=== PATIENT | female | born 1960 | race Caucasian/White ===

== ENCOUNTER 2017-04-18 09:21 | Emergency (ER) | payer BC ==
--- NOTE | 2017-04-18 09:38 | EDM.PDOC ---
ED HPI GENERAL MEDICAL PROBLEM - General Chief Complaint: Abdominal Pain Stated Complaint: Upper Abdominal Pain Time Seen by Provider: 04/18/17 09:25 Source of Information: Reports: Patient, Family, RN, RN Notes Reviewed History Limitations: Reports: No Limitations - History of Present Illness INITIAL COMMENTS - FREE TEXT/NARRATIVE: Patient presents to the ED at [facility] with severe epigastric pain, N/V that started last evening around 11 pm. Patient states her symptoms began after she had eaten food. She states the vomitus is bile in color. She believe she vomited at least 4-5 times. No diarrhea. No chest pain or SOB. No focal neurological deficits. Onset Date: 04/17/17 Duration: Getting Worse, Waxing/Waning Associated Symptoms: Reports: Nausea/Vomiting Lower Abdomen Pain Score (Numeric/FACES): 4 - Related Data Allergies Allergy/AdvReac Type Severity Reaction Status Date / Time pet dander Allergy Sneezing Uncoded 04/18/17 09:34 seasonal Allergy Itching Uncoded 04/18/17 09:34 Home Meds: Home Meds Ascorbate Calcium [Vitamin C] 1 tab PO BID 11/06/14 [History] Calcium Carbonate/Vitamin D3 [Calcium 600 + Vit D Tablet] 2 tab PO DAILY [History] Celecoxib [CeleBREX] 1 cap PO DAILY 11/06/14 [History] Cetirizine HCl [Zyrtec] 1 cap PO DAILY 11/06/14 [History] Joceline Townsend/Linoleic/Gamoleni [Evening Townsend 1,000 mg Sftg] 1 cap PO BID [History] Fluticasone Propionate [Flonase] 2 spray NASBOTH DAILY 11/06/14 [History] Hydrocodone/Acetaminophen [Hydrocodon-Acetaminoph 7.5-325] 1 - 2 tab PO Q4H PRN 11/06/14 [History] Multivitamin [Multi Vitamin Daily] 1 tab PO BID 11/06/14 [History] Social & Family History - Tobacco Use Smoking Status *Q: Never Smoker - Alcohol Use Days Per Week of Alcohol Use: 0 - Recreational Drug Use Recreational Drug Use: No Drug Use in Last 12 Months: No ED ROS GENERAL - Review of Systems Review Of Systems: See Below Constitutional: Denies: Fever, Chills, Weakness Respiratory: Denies: Shortness of Breath, Cough Cardiovascular: Denies: Chest Pain, Palpitations GI/Abdominal: Reports: Abdominal Pain, Nausea, Vomiting. Denies: Black Stool, Bloody Stool, Diarrhea Skin: Reports: No Symptoms Neurological: Reports: No Symptoms ED EXAM, GI/ABD - Physical Exam Exam: See Below Exam Limited By: No Limitations General Appearance: Alert, No Apparent Distress Respiratory/Chest: No Respiratory Distress, Lungs Clear, Normal Breath Sounds Cardiovascular: Regular Rate, Rhythm GI/Abdominal: Hyperactive Bowel Sounds, Tenderness (epigastric), Rigidity. No: Guarding, Rebound Neurological: Alert, Oriented Skin Exam: Warm, Dry, Intact, Normal Color, No Rash Course - Vital Signs Last Recorded V/S: Last Vital Signs Temp 37.4 C 04/18/17 09:21 Pulse 83 04/18/17 09:21 Resp 16 04/18/17 09:21 BP 118/61 04/18/17 09:21 Pulse Ox - Orders/Labs/Meds Orders: Active Orders 24 hr Category Date Time Status Abdomen Pelvis w Cont [CT] Stat Exams 04/18/17 09:45 Taken Sodium Chloride 0.9% [Saline Flush] Med 04/18/17 09:42 Active 10 ml FLUSH ASDIRECTED PRN Peripheral IV Insertion Adult [OM.PC] Routine Oth 04/18/17 09:42 Ordered Medication Orders Sodium Chloride (Saline Flush) 10 ml FLUSH ASDIRECTED PRN PRN Reason: Keep Vein Open Labs: Laboratory Tests 04/18/17 04/18/17 04/18/17 Range/Units 09:55 09:55 09:55 WBC 12.0 H (4.0-10.0) x10^3/uL RBC 4.35 (4.00-5.50) x10^6/uL Hgb 12.3 (12.0-16.0) g/dL Hct 36.8 (33.0-47.0) % MCV 84.6 (78.0-93.0) fL MCH 28.3 (26.0-32.0) pg MCHC 33.4 (32.0-36.0) g/dL RDW Coeff of Sergio 14.8 (10.0-15.0) % Plt Count 284 (130-400) x10^3/uL Neut % (Auto) 89.7 H (50.0-80.0) % Lymph % (Auto) 4.4 L (25.0-50.0) % [place] % (Auto) 5.4 (2.0-11.0) % Eos % (Auto) 0.4 (0.0-4.0) % Baso % (Auto) 0.1 L (0.2-1.2) % Sodium 142 (136-145) mmol/L Potassium 3.7 (3.5-5.1) mmol/L Chloride 103 (98-107) mmol/L Carbon Dioxide 27 (21-32) mmol/L BUN 15 (7-18) mg/dL Creatinine 0.9 (0.55-1.02) mg/dL Est Cr Clr Drug Dosing 66.52 mL/min Estimated GFR (MDRD) > 60 Glucose 126 H (74-106) mg/dL Lactic Acid 1.1 (0.4-2.0) mmol/L Calcium 8.6 (8.5-10.1) mg/dL C-Reactive Protein 2.6 H (<=0.9) mg/dL Amylase 49 (25-115) U/L Lipase 134 (73-393) U/L Urine Color (YELLOW) Urine Appearance (CLEAR) Urine pH (5.0-8.0) Ur Specific [place] Urine Protein (NEGATIVE) mg/dL Urine Glucose (UA) (NEGATIVE) mg/dL Urine Ketones (NEGATIVE) mg/dL Urine Occult Blood (NEGATIVE) Urine Nitrite (NEGATIVE) Urine Bilirubin (NEGATIVE) Urine Urobilinogen (0.2) EU/dL Ur Leukocyte Esterase (NEGATIVE) Urine RBC (NOT SEEN) /HPF Urine WBC (NOT SEEN) /HPF Ur Squamous Epith Cells (NEGATIVE) /HPF Urine Bacteria (NEGATIVE) /HPF Urine Mucus (NEGATIVE) /LPF 04/18/17 Range/Units 11:50 WBC (4.0-10.0) x10^3/uL RBC (4.00-5.50) x10^6/uL Hgb (12.0-16.0) g/dL Hct (33.0-47.0) % MCV (78.0-93.0) fL MCH (26.0-32.0) pg MCHC (32.0-36.0) g/dL RDW Coeff of Sergio (10.0-15.0) % Plt Count (130-400) x10^3/uL Neut % (Auto) (50.0-80.0) % Lymph % (Auto) (25.0-50.0) % [place] % (Auto) (2.0-11.0) % Eos % (Auto) (0.0-4.0) % Baso % (Auto) (0.2-1.2) % Sodium (136-145) mmol/L Potassium (3.5-5.1) mmol/L Chloride (98-107) mmol/L Carbon Dioxide (21-32) mmol/L BUN (7-18) mg/dL Creatinine (0.55-1.02) mg/dL Est Cr Clr Drug Dosing mL/min Estimated GFR (MDRD) Glucose (74-106) mg/dL Lactic Acid (0.4-2.0) mmol/L Calcium (8.5-10.1) mg/dL C-Reactive Protein (<=0.9) mg/dL Amylase (25-115) U/L Lipase (73-393) U/L Urine Color Yellow (YELLOW) Urine Appearance Cloudy H (CLEAR) Urine pH 8.5 H (5.0-8.0) Ur Specific [place] 1.015 Urine Protein Negative (NEGATIVE) mg/dL Urine Glucose (UA) Negative (NEGATIVE) mg/dL Urine Ketones Trace H (NEGATIVE) mg/dL Urine Occult Blood Negative (NEGATIVE) Urine Nitrite Negative (NEGATIVE) Urine Bilirubin Negative (NEGATIVE) Urine Urobilinogen 0.2 (0.2) EU/dL Ur Leukocyte Esterase Negative (NEGATIVE) Urine RBC 0-5 (NOT SEEN) /HPF Urine WBC 0-5 (NOT SEEN) /HPF Ur Squamous Epith Cells Rare (NEGATIVE) /HPF Urine Bacteria Many H (NEGATIVE) /HPF Urine Mucus Not seen (NEGATIVE) /LPF Meds: Medications Generic Name Dose Route Start Last Admin Trade Name Freq PRN Reason Stop Dose Admin Sodium Chloride 10 ml 04/18/17 09:42 Saline Flush FLUSH ASDIRECTED PRN Keep Vein Open Discontinued Medications Generic Name Dose Route Start Last Admin Trade Name Freq PRN Reason Stop Dose Admin Al Hydroxide/Mg Hydroxide 30 ml 04/18/17 10:06 04/18/17 10:13 Gi Cocktail PO 04/18/17 10:07 30 ml ONETIME ONE Administration Sodium Chloride 1,000 mls @ 999 mls/hr 04/18/17 09:43 04/18/17 10:04 Normal Saline IV 04/18/17 10:43 999 mls/hr ONETIME ONE Administration Sodium Chloride 100 mls @ 3 mls/sec 04/18/17 11:10 04/18/17 11:37 Normal Saline IV 04/18/17 11:11 3 mls/sec ONETIME ONE Administration Iopamidol 100 ml 04/18/17 11:10 04/18/17 11:37 Isovue-300 (61%) IVPUSH 04/18/17 11:11 100 ml ONETIME ONE Administration Ketorolac Tromethamine 30 mg 04/18/17 09:43 04/18/17 10:05 Toradol IVPUSH 04/18/17 09:44 30 mg ONETIME ONE Administration Ondansetron HCl 4 mg 04/18/17 09:43 04/18/17 10:07 Zofran IVPUSH 04/18/17 09:44 4 mg ONETIME ONE Administration Pantoprazole Sodium 40 mg 04/18/17 09:43 04/18/17 10:10 Protonix Iv IVPUSH 04/18/17 09:44 40 mg ONETIME ONE Administration - Radiology Interpretation Free Text/Narrative:: CT Abd/Pelvis: Acute Appendicitis - see scanned document in EMR CT Results Date: 04/18/17 CT Results Time: 12:12 Departure - Departure Time of Disposition: 12:29 Disposition: DC/Tfer to Acute Hospital 02 Condition: good Clinical Impression: Appendicitis Qualifiers: Appendicitis type: acute appendicitis Acute appendicitis type: with localized peritonitis Qualified Code(s): K35.3 - Acute appendicitis with localized peritonitis - Discharge Information Referrals: Cara Gonsalez MD [Physician] - Forms: Interfacility Transfer [facility] ED Communication - ED Communication Date/Time Date: 04/18/17 Time Called: 12:26 - Discussed Case With (1) Discussed Case With (1): Admitting Provider (Dr. Nagy, Surgery) - Conversation Summary Admitting Provider Agreed to Patient's Admission: Yes Patient Aware of Amendments fo Care Plan: Yes Summary Comment: Patient will be transferred to [facility]. Dr. Nagy is the accepting provider. Report given. - Problem List Review Problem List Initiated/Reviewed/Updated: Yes - My Orders Last 24 Hours: My Active Orders 04/18/17 09:42 Sodium Chloride 0.9% [Saline Flush] 10 ml FLUSH ASDIRECTED PRN Peripheral IV Insertion Adult [OM.PC] Routine 04/18/17 09:45 Abdomen Pelvis w Cont [CT] Stat - Assessment/Plan Last 24 Hours: My Active Orders 04/18/17 09:42 Sodium Chloride 0.9% [Saline Flush] 10 ml FLUSH ASDIRECTED PRN Peripheral IV Insertion Adult [OM.PC] Routine 04/18/17 09:45 Abdomen Pelvis w Cont [CT] Stat
[2017-04-18] MEDS ORDERED: Sodium Chloride 0.9% 10 ML Syringe FLUSH PRN (09:42)
[2017-04-18] MEDS ORDERED: Sodium Chloride 0.9% 1,000 ML IV ONE (09:43)
[2017-04-18] MEDS ORDERED: Ondansetron 4 MG/2 ML SDV IVPUSH ONE (09:43)
[2017-04-18] MEDS ORDERED: Pantoprazole 40 MG Vial IVPUSH ONE (09:43)
[2017-04-18] MEDS ORDERED: Ketorolac 30 MG/ML SDV IVPUSH ONE (09:43)
[2017-04-18] MEDS ORDERED: Alum Hydroxide/Mag Hydroxide 10 ML, Lidocaine 2% 10 ML, Promethazine 12.5 MG PO ONE ×6 (09:44→09:57)
[2017-04-18 09:51] VITALS: BP 118/61
[2017-04-18] MEDS ORDERED: GI Cocktail Oral Solution 30 ML PO ONE (10:06)
[2017-04-18 10:39] LABS: CHLORIDE,CL 103 mmol/L (98-107); SODIUM,NA 142 mmol/L (136-145)
[2017-04-18] MEDS ORDERED: Sodium Chloride 0.9% 100 ML IV ONE (11:10)
[2017-04-18] MEDS ORDERED: Iopamidol 612 MG/ML 100 ML Bottle IVPUSH ONE (11:10)
[2017-04-18] MEDS ORDERED: cefTRIAXone 1 GM Vial IVPUSH ONE (12:34)
== END 2017-04-18 12:52 | disposition short-term general hospital (02) ==
LOC: VM.ED 09:21
DX: K35.3 Acute appendicitis with localized peritonitis (principal); Z79.899 Other long term (current) drug therapy
CPT/HCPCS: 36415; 74177; 80048; 81001; 82150; 83605; 83690; 85025; 86140; 96361; 96374; 96375; 99285; A9270; C9113; J0696; J1885; J2405; J7030; J7050; Q9967

== ENCOUNTER 2021-12-26 14:56 | Emergency (ER) | payer BC ==
[2021-12-26] MEDS ORDERED: methylPREDNISolone Acetate 40 MG/ML SDV IM ONE (15:32)
[2021-12-26] MEDS ORDERED: cefTRIAXone 1 GM, Lidocaine 1% 2.1 ML IM ONE ×2 (15:32)
[2021-12-26 16:23] VITALS: BP 128/71; PULSE 112
== END 2021-12-26 16:20 | disposition home or self-care (01) ==
LOC: VM.ED 14:56
DX: J32.9 Chronic sinusitis, unspecified (principal); E78.00 Pure hypercholesterolemia, unspecified; Z88.5 Allergy status to narcotic agent; Z91.09 Other allergy status, other than to drugs and biological substances; Z79.82 Long term (current) use of aspirin; Z79.899 Other long term (current) drug therapy; Z20.822 Contact with and (suspected) exposure to COVID-19
CPT/HCPCS: 96372; 99283; J0696; J1030; U0002

== ENCOUNTER 2024-05-18 09:20 | Day surgery (SDC) | payer BC ==
[~2024-05-18 09:20] MED LIST: Lactated Ringers 1,000 ML IV SCH
[2024-05-18] MEDS: Lactated Ringers 1,000 ML IV SCH (09:36)
[2024-05-18] MEDS ORDERED: fentaNYL 100 MCG/2 ML SDV ONE (10:39)
[2024-05-18] MEDS ORDERED: Propofol 200 MG/20 ML SDV ONE ×3 (10:39→12:10)
[2024-05-18 13:03] VITALS: PULSE 64
[2024-05-18 13:14] VITALS: BP 117/54
== END 2024-05-18 13:43 | disposition home or self-care (01) ==
LOC: VM.SDS 09:20
PROVIDERS: ATTEND Family Medicine
DX: Z12.11 Encounter for screening for malignant neoplasm of colon (principal); D12.6 Benign neoplasm of colon, unspecified; D12.0 Benign neoplasm of cecum; D12.3 Benign neoplasm of transverse colon; K57.30 Diverticulosis of large intestine without perforation or abscess without bleeding; Z86.010 Personal history of colon polyps; J01.40 Acute pansinusitis, unspecified; Z79.899 Other long term (current) drug therapy
CPT/HCPCS: 00811; J2704; J3010; J7120